=== PATIENT | female | born 1985 | race Caucasian/White ===

== ENCOUNTER 2020-10-11 09:20 | Outpatient (CLI) | payer OTHER, SELFPAY ==
[2020-10-11 10:05] LABS: Basophils Absolute Auto 0.1 K/mm3 (0.0-0.1); Eosinophils Absolute Auto 0.2 K/mm3 (0-0.3); Eosinophils Percent Auto 2.8 % (0-4.4); Hematocrit 39.7 % (37.0-47.0); Immature Granulocyte Absolute 0.02 K/mm3 (0.00-0.031); Immature Granulocyte Percent A 0.3 % (0-0.5); Immature Platelet Fraction Pct 5.1 % (0.9-11.2); Lymphocytes Absolute Auto 2.58 K/mm3 (0.9-3.2); Lymphocytes Percent Auto 37.4 % (18.3-44.2); Mean Corpuscular HGB Conc 32.7 g/dl (32-36); Mean Corpuscular Hemoglobin 30.3 pg (26-34); Mean Corpuscular Volume 92.5 fl (80-100); Mean Platelet Volume 9.8 fl (7.4-10.4); Monocytes Absolute Auto 0.6 K/mm3 (0.1-0.6); Monocytes Percent Auto 8.9 % (2.6-8.5); Neutrophils Absolute Auto 3.4 K/mm3 (1.3-6.7); Neutrophils Percent Auto 49.6 % (45.5-73.1); Platelet Count Result 365 k/mm3 (150-375); Red Blood Count 4.29 M/mm3 (4.2-5.4); Red Cell Distribution Width 12.1 % (11.5-14.5); White Blood Count 6.9 K/mm3 (4.5-10.0)
[2020-10-11 10:17] LABS: Alanine Aminotransferase 12 U/L (4-35); Albumin Level 4.3 g/dL (3.5-5.1); Alkaline Phosphatase 70 U/L (38-126); Anion Gap 8 mmol/L (8-16); Aspartate Amino Transferase 19 U/L (14-36); Blood Urea Nitrogen 19 mg/dL (7-17); Calcium 9.7 mg/dL (8.4-10.2); Carbon Dioxide 31 mmol/L (22-30); Chloride 101 mmol/L (98-107); Cholesterol 199 mg/dL (0-200); Estimated Glomerular Filt Rate > 60; Glucose 86 mg/dL (65-105); HDL Direct 67 mg/dL; Magnesium 1.9 mg/dL (1.6-2.3); Potassium 4.3 mmol/L (3.4-5.0); Sodium 140 mmol/L (137-145); Triglycerides 78 mg/dL (<150)
[2020-10-11 10:29] LABS: LDL Cholesterol Direct 104 mg/dL
[2020-10-11 10:58] LABS: Free T4 Free Thyroxine 1.15 ng/mL (0.78-2.19)
[2020-10-11 11:49] LABS: Hepatitis C Virus Antibody Negative (Negative)
[2020-10-15 09:35] LABS: Vitamin D 1,25 (OH)2 Total 49 pg/mL (18-72); Vitamin D2 1,25 (OH)2 <8 pg/mL; Vitamin D3 1,25 (OH)2 49 pg/mL
[2020-10-16 12:45] LABS: Testosterone Free 2.7 pg/mL (0.1-6.4); Testosterone Total 37 ng/dL (2-45)
[2020-10-18 14:41] LABS: FSH 7.7 mIU/mL (***)
== END 2020-10-11 09:21 | disposition home or self-care (01) ==
LOC: ANHLAB 09:25
DX: E55.9 Vitamin D deficiency, unspecified (principal); Z11.59 Encounter for screening for other viral diseases; R53.82 Chronic fatigue, unspecified
CPT/HCPCS: 36415; 80053; 80061; 82652; 83001; 83735; 84402; 84403; 84439; 84443; 85025; 85055; 86803

== ENCOUNTER 2023-09-11 17:52 | Emergency (ER) | payer OTHER, SELFPAY ==
--- NOTE | 2023-09-11 17:57 | ED.SKABFB ---
HPI - Skin/Abscess/Foreign Bdy General Chief complaint: Skin/Abscess/Foreign Body Stated complaint: RASH Time Seen by Provider: 09/11/23 18:03 Source: patient and RN notes reviewed Mode of arrival: ambulatory Limitations: dementia History of Present Illness HPI narrative: 38-year-old female presents with concern for discoloration on her left lower leg. She reports she noticed this this morning when she woke up. She denies any injury or trauma. She denies pain, warmth. She denies any decreased sensation to the leg or distal to the discoloration. She denies any warmth, tenderness, redness, swelling to the posterior calf or ankle. She denies fever, chills, aches, sweats. MD complaint: other (Redness) Related Data Allergies Allergy/AdvReac Type Severity Reaction Status Date / Time No Known Allergies Allergy Unverified 09/11/23 18:00 Review of Systems Review of Systems: CONSTITUTIONAL: Denies malaise, chills, sweats, or fever. EYES: Denies redness, or discharge. ENT: Denies rhinorrhea, congestion, swollen lips, swollen tongue CARDIOVASCULAR: Denies chest pain, palpitations, or edema. RESPIRATORY: Denies cough or dyspnea. GASTROINTESTINAL: Denies abdominal pain, nausea, vomiting SKIN: Reports redness to the front lower left leg. Denies purulent drainage, vesicles, bullae, numbness, pain beyond proportion. Denies itching MUSCULOSKELETAL: Denies joint pain or myalgia. NEUROLOGIC: Denies headache. All systems reviewed & are unremarkable except as noted in HPI and below PMFSH Comments At time of signature, agree with nursing past medical, surgical, social and family history. There is no relevant family history pertinent to the presenting complaint Exam Narrative: GENERAL: Well-appearing, well-nourished, and in no acute distress. HEAD: Normocephalic, atraumatic. EYES: PERRLA, conjunctivae clear ENT: Mucous membranes moist. NECK: Supple. No lymphadenopathy CHEST: Clear to auscultation. No respiratory distress. HEART: Regular rate and rhythm. SKIN: Warm, dry. Flat lace-like pattern erythema noted to the anterior left lower leg approximately 20 cm x 10 cm without induration, tenderness, warmth, tenderness. No vesicles, bullae, necrosis, ecchymosis, crepitus noted. EXT: No lower extremity edema noted NEURO: Alert and oriented x3. PSYCH: Normal mood and affect Course Course Emergency Course: Concern for DVT, superficial thrombosis, vasculitis. No ultrasound available tonight in the ED. Patient was given a script for a dose of blood thinner and one dose of steroid and instructed to go to the ED in the morning fo further evaluation. Patient is aware of, understands and agrees to treatment plan. Anticipatory guidance given. Patient agrees to follow-up as directed and is aware of reasons to seek care at the emergency department. Portions of this record may have been created with voice recognition software Level of Care: Express Care Visit Vital Signs Vital signs: Reviewed. MDM - Skin/Abscess/Foreign Bdy MDM Narrative Medical decision making narrative: Patient looks well, nontoxic; no neurologic signs or symptoms. Patient does not have history of of penetrating trauma, laceration, blunt trauma, recent surgery, immunosuppression, malignancy, obesity, alcoholism, corticosteroid use. Question DVT, superficial thrombosis, vasculitis. Critical Care Time Critical Care Time Critical Care Time: No Discharge Plan Discharge Clinical Impression: Livedo reticularis Patient Disposition: Home, Self-Care Condition: Stable Instructions: Antibiotic Form, General Patient Instructions Additional Instructions: Take medications as directed. You should go to the ER in morning for further evaluation of your condition. If you have significant worsening of symptoms, trouble breathing or other urgent concerns please go to the ER sooner. Prescriptions: New warfarin 5 mg tablet 5 mg PO ONCE Qty: 1 0RF pre
[2023-09-11 18:03] VITALS: BP 110/59; PULSE 103; RESP 16; TEMP 36.6; O2SAT 100
== END 2023-09-11 18:21 | disposition home or self-care (01) ==
PROVIDERS: Emergency Provider Nurse Practitioner; PCP Nurse Practitioner
DX: R23.1 Pallor (principal)
CPT/HCPCS: 99213; G0463

== ENCOUNTER 2023-09-12 05:55 | Emergency (ER) | payer OTHER, SELFPAY ==
--- NOTE | ~2023-09-12 | US_ITS ---
EXAMINATION: US venous doppler [facility] DATE: 09/12/2023 08:38 INDICATION: Left lower limb swelling and erythema TECHNIQUE: Grayscale ultrasound images without and with compression and Doppler ultrasound images of the left lower extremity veins were obtained. COMPARISON: None. FINDINGS: The visualized portions of left common femoral vein, profunda (deep) femoral vein, femoral vein, popl iteal vein, peroneal veins, posterior tibial veins and greater saphenous vein outflow are patent. IMPRESSION: 1. No deep venous thrombosis in the left lower limb. Reviewed, dictated and finalized at location A. [employer]
[2023-09-12 06:04] VITALS: BP 149/114; PULSE 125; RESP 16; TEMP 36.6; O2SAT 98
--- NOTE | 2023-09-12 06:32 | ED.GENADULT ---
HPI - General Adult General Chief complaint: Extremity Injury, Lower <Santiago Nice MD - Last Filed: 09/12/23 06:35> Stated complaint: L leg pain and swelling dvt rule out <Santiago Nice MD - Last Filed: 09/12/23 06:35> Time Seen by Provider: 09/12/23 06:12 <Santiago Nice MD - Last Filed: 09/12/23 06:35> History of Present Illness HPI narrative: Patient is a 38-year-old female who presents to the emergency department with chief complaint of a left lower extremity pain and bruising patient reports that he she knows that she had redness swelling and the bruising pattern on her left lower extremity the patient reports no trauma the patient states that she was seen in urgent care yesterday and they gave her a dose of Coumadin and put her on prednisone. The patient states she was told to them come to the emergency department in the morning for a venous duplex of her left lower extremity. The patient denies chest pain/shortness of breath denies any other complaints. <Santiago Nice MD - Last Filed: 09/12/23 06:35> Related Data Allergies/adverse reactions: Allergies Allergy/AdvReac Type Severity Reaction Status Date / Time No Known Allergies Allergy Verified 09/12/23 05:59 <Santiago Nice MD - Last Filed: 09/12/23 06:35> Review of Systems Review of Systems: A 10 system review of systems was completed on the patient and is negative except for what is stated in the HPI. Nursing and ancillary documentation was reviewed. <Santiago Nice MD - Last Filed: 09/12/23 06:35> Exam Narrative: GENERAL: Well-appearing, well-nourished, and in no acute distress. HEAD: Normocephalic, atraumatic. EYES: PERRLA and EOMI. ENT: Nares clear, no rhinorrhea or epistaxis. Mucous membranes moist. NECK: Supple. CHEST: Clear to auscultation. No respiratory distress. HEART: Regular rate and rhythm. No murmur heard. Normal peripheral pulses. ABDOMEN: Soft, nontender, nondistended, normal active bowel sounds. EXTREMITIES: Normal range of motion. No edema. SKIN: Warm, dry, there is bruising present and increased marking of the vasculature of the left lower extremity. NEURO: No focal deficits. Alert and oriented x3. PSYCH: Normal mood and affect. <Santiago Nice MD - Last Filed: 09/12/23 06:35> Course Reevaluation(s) Reevaluation #1: Patient states her rash improved after taking steroid. She denies any pain, fever. CBC is normal. I discussed venous doppler is negative. Will continue steroids and she will follow up with PCP <Rachel Marie MD - Last Filed: 09/12/23 17:33> Date: 09/12/23 <Rachel Marie MD - Last Filed: 09/12/23 17:33> Time: 09:52 <Rachel Marie MD - Last Filed: 09/12/23 17:33> Vital Signs Vital signs: Vital Signs Temperature 98 F 09/12/23 06:04 Pulse Rate 125 H 09/12/23 06:04 Respiratory Rate 16 09/12/23 06:04 Blood Pressure 149/114 H 09/12/23 06:04 Pulse Oximetry 98 09/12/23 06:04 Temperature 98 F 09/12/23 06:04 Pulse Rate 58 L 09/12/23 10:05 Respiratory Rate 16 09/12/23 10:05 Blood Pressure 149/114 H 09/12/23 06:04 Pulse Oximetry 100 09/12/23 10:05 <Santiago Nice MD - Last Filed: 09/12/23 06:35> Vital Signs Temperature 98 F 09/12/23 06:04 Pulse Rate 125 H 09/12/23 06:04 Respiratory Rate 16 09/12/23 06:04 Blood Pressure 149/114 H 09/12/23 06:04 Pulse Oximetry 98 09/12/23 06:04 Temperature 98 F 09/12/23 06:04 Pulse Rate 58 L 09/12/23 10:05 Respiratory Rate 16 09/12/23 10:05 Blood Pressure 149/114 H 09/12/23 06:04 Pulse Oximetry 100 09/12/23 10:05 <Rachel Marie MD - Last Filed: 12/02/23 17:33> Medical Decision Making MDM Narrative Medical decision making narrative: Differential diagnosis includes vasculitis, DVT, cellulitis Laboratory studies are obtained on the patient
[2023-09-12 06:33] VITALS: PULSE 70; RESP 16; O2SAT 98
[2023-09-12 06:37] LABS: Basophils Percent Auto 0.1 % (0.2-1.2); Hematocrit 40.2 % (37.0-47.0); Immature Granulocyte Absolute 0.03 K/mm3 (0.00-0.031); Immature Granulocyte Percent A 0.3 % (0-0.5); Lymphocytes Absolute Auto 0.94 K/mm3 (0.9-3.2); Lymphocytes Percent Auto 10.9 % (18.3-44.2); Mean Corpuscular HGB Conc 32.3 g/dl (32-36); Mean Corpuscular Hemoglobin 29.2 pg (26-34); Mean Corpuscular Volume 90.3 fl (80-100); Mean Platelet Volume 10.1 fl (7.4-10.4); Monocytes Absolute Auto 0.3 K/mm3 (0.1-0.6); Neutrophils Absolute Auto 7.4 K/mm3 (1.3-6.7); Neutrophils Percent Auto 85.7 % (45.5-73.1); Platelet Count Result 358 k/mm3 (150-375); Red Blood Count 4.45 M/mm3 (4.2-5.4); Red Cell Distribution Width 12.4 % (11.5-14.5); White Blood Count 8.6 K/mm3 (4.5-10.0)
[2023-09-12 06:45] LABS: Alanine Aminotransferase 13 U/L (6-35); Albumin Level 4.4 g/dL (3.5-5.1); Alkaline Phosphatase 94 U/L (38-126); Anion Gap 14 mmol/L (8-16); Aspartate Amino Transferase 18 U/L (14-36); Bilirubin,Total 0.8 mg/dL (0.2-1.3); Blood Urea Nitrogen 16 mg/dL (7-17); Calcium 9.9 mg/dL (8.4-10.2); Carbon Dioxide 17 mmol/L (22-30); Chloride 108 mmol/L (98-107); Estimated Glomerular Filt Rate > 60; Glucose 158 mg/dL (65-110); Potassium 3.8 mmol/L (3.4-5.0); Sodium 139 mmol/L (137-145)
[2023-09-12 06:54] LABS: NT Pro B Type Natriuretic Pept 179 pg/mL (19.9-100)
[2023-09-12 07:23] LABS: Prothrombin Time 13.8 Seconds (11.1-14.7)
[2023-09-12 07:24] LABS: Partial Thromboplastin Time 30.5 SECONDS (22.3-36.8)
[2023-09-12 10:05] VITALS: PULSE 58; RESP 16; O2SAT 100
== END 2023-09-12 10:06 | disposition home or self-care (01) ==
PROVIDERS: Emergency Provider Emergency Medicine; PCP Nurse Practitioner
DX: R21 Rash and other nonspecific skin eruption (principal)
CPT/HCPCS: 36415; 80053; 83880; 85025; 85055; 85610; 85730; 93971; 95864; 99284